=== PATIENT | female | born 1965 | race Caucasian/White ===

== ENCOUNTER → 2021-06-11 | Outpatient (CLI) | payer BC ==
[~2021-06-11] MED LIST: AUGMENTIN 875875 M1 PO; CLEOCIN HCL150 MG PO; DOXYCYCLINE 10100 MG PO; EFFEXOR XR150 MG PO; GLUCOPHAGE XR500 MG PO; HYDROCHLOROTHIA25 M1 PO; LISINOPRIL10 MG PO; PREDNISONE 20 M20 M1 PO; PREDNISONE50 MG PO; PROMETHAZINE-D120 ML PO; SIMVASTATIN20 MG PO; TRAMADOL 50 MG50 MG PO; VITCB500GO PO
== END ==
LOC: M.RAD 11:43
PROVIDERS: ATTEND Family Medicine
DX: Z12.31 Encounter for screening mammogram for malignant neoplasm of breast (principal)

== ENCOUNTER → 2021-06-18 | Outpatient (CLI) | payer BC | LOC: M.ULTRA 13:00 | PROVIDERS: ATTEND Family Medicine | DX: N63.10 Unspecified lump in the right breast, unspecified quadrant (principal); N63.20 Unspecified lump in the left breast, unspecified quadrant ==

== ENCOUNTER 2021-07-18 19:24 | Emergency (ER) | payer BC ==
[~2021-07-18] VITALS: Ht 160 cm; Wt 90.7 kg
[2021-07-18] MEDS ORDERED: MUPIROCIN1 GM TOP (19:38)
[2021-07-18 19:48] VITALS: BP 140/67
== END 2021-07-18 19:49 | disposition home or self-care (01) ==
LOC: M.ERS 19:24
DX: S40.862A Insect bite (nonvenomous) of left upper arm, initial encounter (principal); S40.861A Insect bite (nonvenomous) of right upper arm, initial encounter; S80.862A Insect bite (nonvenomous), left lower leg, initial encounter; S80.861A Insect bite (nonvenomous), right lower leg, initial encounter; I10 Essential (primary) hypertension; E78.00 Pure hypercholesterolemia, unspecified; E11.9 Type 2 diabetes mellitus without complications; Z90.5 Acquired absence of kidney; Z79.899 Other long term (current) drug therapy; Z79.2 Long term (current) use of antibiotics; Z91.041 Radiographic dye allergy status; Z88.1 Allergy status to other antibiotic agents; Z88.6 Allergy status to analgesic agent; W57.XXXA Bitten or stung by nonvenomous insect and other nonvenomous arthropods, initial encounter; Y93.89 Activity, other specified; Y92.89 Other specified places as the place of occurrence of the external cause; Y99.8 Other external cause status